=== PATIENT | male | born 1955 | race Caucasian/White ===

== ENCOUNTER → 2017-11-09 | Outpatient (CLI) | payer OTHER ==
[~2017-11-09] MED LIST: ACET-1256 PO; ASCA500 PO; ASPI-232 PO; LAMO200T35 PO; MULT-506 PO; OXYC-737 PO
== END | disposition home or self-care (01) ==
LOC: C.RDSM 09:18
PROVIDERS: ATTEND Orthopaedic Surgery
DX: Z09 Encounter for follow-up examination after completed treatment for conditions other than malignant neoplasm (principal)